=== PATIENT | male | born 1995 | race Caucasian/White ===

== ENCOUNTER 2017-08-21 23:17 | Emergency (ER) | payer OTHER ==
[~2017-08-21] VITALS: Ht 180.3 cm; Wt 88.4 kg
[2017-08-22 00:13] LABS: BLOOD UREA NITROGEN 17 mg/dL (7-18)
[2017-08-22] MEDS ORDERED: OMNIPAQUE 350 MG/ML, 100ML BOTTLE ONE (01:08)
[2017-08-22] MEDS ORDERED: LIDOCAINE-MPF 2% ,5ML ONE (01:18)
[2017-08-22] MEDS ORDERED: DEXAMETHASONE 4 MG TABLET ONE (01:19)
[2017-08-22] MEDS ORDERED: DEXAMETHASONE 4 MG TABLET PO ONE (01:30)
[2017-08-22] MEDS ORDERED: LIDOCAINE 2%, 10ML INFIL ONE (01:30)
[2017-08-22] MEDS ORDERED: CLINDAMYCIN PMX 600MG/50ML 50 ML ONE (01:43)
[2017-08-22] MEDS ORDERED: CLINDAMYCIN PMX 600MG/50ML 50 ML IV ONE (02:00)
[2017-08-22] MEDS ORDERED: BENZOCAINE 20% SPRAY 0.5ML ONE (02:17)
[2017-08-22 04:04] VITALS: BP 136/79
== END 2017-08-22 04:07 | disposition home or self-care (01) ==
LOC: ED 08-22 01:03
DX: J36 Peritonsillar abscess (principal)
CPT/HCPCS: 10160; 36415; 70491; 80048; 96365; 99285; Q9967